=== PATIENT | female | born 1995 | race Caucasian/White ===

== ENCOUNTER 2020-12-31 22:09 | Emergency (ER) | payer OTHER, SELFPAY ==
--- NOTE | ~2020-12-31 | XR_ITS ---
EXAMINATION: XR KNEE, RIGHT CLINICAL INFORMATION: Pain. COMPARISON: None TECHNIQUE: Four views of the right knee. FINDINGS: No acute fractures or malalignment. No significant degenerative changes. No chondrocalcinosis or unexpected foreign bodies. Small joint effusion. XR/XR knee RT 4V IMPRESSION: No acute fractures or malalignment. Small joint effusion.
--- NOTE | ~2020-12-31 | XR_ITS ---
EXAMINATION: XR HIP, RIGHT CLINICAL INFORMATION: Pain. COMPARISON: None TECHNIQUE: Two views of the right hip. FINDINGS: Bones and soft tissues are normal. No fracture. Alignment is anatomic. Hip joint space is maintained. XR/XR hip RT w PEL1V IMPRESSION: Normal right hip.
[2020-12-31 22:12] VITALS: BP 136/87; PULSE 102; RESP 20; TEMP 36.7; O2SAT 100; BMI 34.9
--- NOTE | 2020-12-31 23:43 | ED_ITS ---
HPI - Extremity Injury (Lower) General Chief Complaint: Extremity Injury, Lower Stated Complaint: Knee Pain Time Seen by Provider: 12/31/20 23:09 Source: patient Mode of arrival: ambulatory Limitations: no limitations History of Present Illness HPI Narrative: Patient presents to ED for right knee pain and hip pain. Patient states she was in the shower and a right knee some knee gave out which caused her to fall on quietly on her knee and has hip pain. Patient states she heard a popping sound in right knee. Patient denies hitting head or loss of consciousness. Related Data Previous Rx's Medication Instructions Recorded naproxen 500 mg tablet 500 mg PO BID PRN 10 Days #20 tab 12/31/20 cyclobenzaprine 10 mg tablet 10 mg PO TID PRN #18 tab 01/01/21 prednisone 20 mg tablet 60 mg PO DAILY 5 Days #15 tab 01/01/21 Allergies Allergy/AdvReac Type Severity Reaction Status Date / Time No Known Allergies Allergy Verified 12/31/20 22:14 Review of Systems Review of Systems: Yes all other systems are reviewed and are negative Constitutional: Constitutional: Reports as per HPI and Reports no additional constitutional complaints Eyes: Eyes: Reports as per HPI and Reports no additional eye complaints ENT: Reports system reviewed and no additional complaints, except as documented and Reports as per HPI Cardiovascular: Cardiovascular: Reports as per HPI and Reports no additional cardiovascular complaints Respiratory: Respiratory: Reports as per HPI and Reports no additional respiratory complaints Gastrointestinal: Gastrointestinal: Reports as per HPI and Reports no additional gastrointestinal complaints Genitourinary: Genitourinary: Reports no additional female genitourinary complaints and Reports as per HPI Musculoskeletal: Musculoskeletal: Reports no additional musculoskeletal complaints and Reports arthralgias (Right knee right hip) Neurologic: Reports system reviewed and no additional complaints, except as documented and Reports as per HPI Psychiatric: Psychiatric: Reports no additional psychiatric complaints and Reports as per HPI [facility] Past Medical History Medical History (Updated 01/01/21 @ 00:04 by MERLE Infante) Asthma Social History Social History Advance Directives: No Advance Directives Information Provided: Yes Physical Exam Vital Signs: Vital Signs: Last Vital Signs Temp 98.0 F 12/31/20 22:12 Pulse 102 H 12/31/20 22:12 Resp 20 12/31/20 22:12 BP 136/87 12/31/20 22:12 Pulse Ox 100 12/31/20 22:12 Body Mass Index 34.9 Const: General: cooperative, healthy appearing, comfortable, no acute distress, well developed, alert, awake, Physically active and acute distress Orientation/consciousness: patient oriented x3 HENMT: Head: Yes normal to inspection, Yes No palpable skull fracture present, Yes normocephalic, Yes atraumatic, No abrasion, No Acrocyanosis present, No Gonzales's sign, No contusion, No cranial bruits, No hematoma, No laceration, No occipital foramen tenderness, No palpable skull fracture, No raccoon eyes, No scalp lesion, No scalp tenderness, No Temporal artery tenderness present and No periorbital ecchymosis Eyes: General: appearance normal, both eyes and all related structures Neck: Neck: Yes normal visual inspection, Yes full ROM, Yes no lymphadenopathy and Yes no meningeal signs Chest: Chest palpation & inspection: normal inspection of the chest and normal palpation of entire chest wall Resp: Effort & Inspection: normal respiratory effort and able to speak in complete sentences Auscultation: clear to auscultation bilaterally Cardio: Jugular venous distension: no JVD Heart sounds: S1 normal heart sound present and S2 normal heart sound present GI: Inspection: Yes normal to inspection and No abdominal wall ecchymosis Palpation (GI): Soft to palpation, not firm, nontender, no guarding and not rigid : General: No CVA tenderness and Yes no CVA tenderness Back/Spine/Pelvis: Back: no CVA tenderness, No CVA tenderness, mass, No erythema, No warmth, No sacral edema, No ecchymosis and No back tenderness Skin: General skin exam: no rashes or lesions noted and elasticity normal Neuro: General: patient oriented x3, no meningeal signs and CN's II-XI intact bilaterally Cranial nerves: Yes CN's II-XII intact bilaterally Extrem: Other: Right hip negative for ecchymosis, tenderness, erythema, or deformities General: Yes normal to inspection Knee images: 1. Positive for tenderness on palpation. negative for any erythema, ecchymosis, elasticity, or deforomity. Able to flex/extend knee but with pain. Negative for external/internal rotation of leg to indicate hip fracture. patient able to lift lower leg. Negative for dip in thigh to indicate quadriceps tear. lower extremities pedal pusles intact. popiteal pulse intact neuro exam is intact. motor exam intact, but limited due to pain. Psych: Appearance: grossly normal and well kempt Course Course Course Narrative: Patient sent for imaging Reevaluation(s) Reevaluation #1: Xrays negative for fractures. knee xray shows joint effusion after knee popping sound. patient informed most likely she has a meniscus or ligamen tear and will need follow up with ortho for MRI. Will discharge with naproxen and sterioreds. patient placed in crutches and knee wrap Time: 23:57 MDM - Extremity Injury (Lower) MDM Narrative Medical decision making narrative: Knee sprain Discharge Plan Discharge Clinical Impression: Knee MCL sprain Qualifiers: Encounter type: initial encounter Laterality: right Qualified Code(s): S83.411A - Sprain of medial collateral ligament of right knee, initial encounter Joint effusion of knee Qualifiers: Laterality: right Qualified Code(s): M25.461 - Effusion, right knee Patient Disposition: Home, Self-Care Instructions: Knee Sprain (ED), Swollen Knee Joint (ED) Additional Instructions: History physical exam most likely due to injure ligament or meniscus. He will need MRI for orthopedic to see if there was any tear and possible surgical management. You will be discharged with NSAIDs and steroids. Return to the ED immediately for any swelling of lower extremity, bluish black discoloration, co olness, hotness, redness, calf pain, fever, chills, nausea, vomiting, or any other concerning symptoms. Prescriptions: New naproxen 500 mg tablet 500 mg PO BID PRN (Reason: pain) 10 Days Qty: 20 RF: 0 prednisone 20 mg tablet 60 mg PO DAILY 5 Days Qty: 15 RF: 0 cyclobenzaprine 10 mg tablet 10 mg PO TID PRN (Reason: pain) Qty: 18 RF: 0 Referrals: Alfred Spivey MD [Physician] - 2 days (Knee sprain with joint effusions. will need MRI to rule out Tear of meninscus or ligament) Stand Alone Forms: Work/School Release Interventions: ED Discharge Assessment Last Done: 01/01/21 00:10 Discharge Date/Time: 01/01/21 00:12 Print Language: B[place]ian
[2020-12-31] MEDS: oxyCODONE HCl Immed Release 5 MG TABLET PO (23:55)
== END 2021-01-01 00:12 | disposition home or self-care (01) ==
PROVIDERS: Emergency Provider Internal Medicine; PCP Nurse Practitioner Adult Health
DX: S83.411A Sprain of medial collateral ligament of right knee, initial encounter (principal); X50.1XXA Overexertion from prolonged static or awkward postures, initial encounter; M25.461 Effusion, right knee; Y93.E1 Activity, personal bathing and showering; Y92.012 Bathroom of single-family (private) house as the place of occurrence of the external cause; Y99.9 Unspecified external cause status
CPT/HCPCS: 73502; 73564; 96372; 99284

== ENCOUNTER → 2021-12-14 15:02 | Outpatient (BNVA) | payer OTHER, SELFPAY | PROVIDERS: PCP Nurse Practitioner Adult Health; Visit Provider Physician Assistant | DX: S05.12XA Contusion of eyeball and orbital tissues, left eye, initial encounter (principal); Y04.2XXA Assault by strike against or bumped into by another person, initial encounter | CPT/HCPCS: 99203 ==

== ENCOUNTER → 2021-12-17 14:06 | Outpatient (BNVA) | payer OTHER, SELFPAY | PROVIDERS: PCP Nurse Practitioner Adult Health; Visit Provider Internal Medicine | DX: S05.12XA Contusion of eyeball and orbital tissues, left eye, initial encounter (principal); Y04.2XXA Assault by strike against or bumped into by another person, initial encounter | CPT/HCPCS: 70450; 99214 ==

== ENCOUNTER → 2021-12-24 09:56 | Outpatient (BNVA) | payer OTHER, SELFPAY | PROVIDERS: PCP Nurse Practitioner Adult Health; Visit Provider Internal Medicine | DX: S05.12XA Contusion of eyeball and orbital tissues, left eye, initial encounter (principal); Y04.2XXA Assault by strike against or bumped into by another person, initial encounter | CPT/HCPCS: 99213 ==

== ENCOUNTER → 2021-12-31 09:22 | Outpatient (BNVA) | payer OTHER, SELFPAY | PROVIDERS: PCP Nurse Practitioner Adult Health; Visit Provider Internal Medicine | DX: S05.12XD Contusion of eyeball and orbital tissues, left eye, subsequent encounter (principal); Y04.2XXD Assault by strike against or bumped into by another person, subsequent encounter | CPT/HCPCS: 99213 ==

== ENCOUNTER 2022-12-01 21:27 | Emergency (ER) | payer SELFPAY ==
[2022-12-01 21:59] VITALS: BP 128/86; PULSE 89; RESP 18; TEMP 36.6; O2SAT 98; BMI 35.0
--- NOTE | 2022-12-01 23:52 | ED.GENADULT ---
HPI - General Adult General Chief complaint: Extremity Problem Stated complaint: Swollen ring finger Time Seen by Provider: 12/01/22 22:45 Source: patient, RN notes reviewed and old records reviewed Mode of arrival: ambulatory Limitations: no limitations History of Present Illness HPI narrative: 27-year-old female presents for evaluation of swelling to her left 4th finger. Patient reports that she got yesterday She put a new wedding ring/band on at 4:00 p.m. yesterday She states that today she could not take the ring off after finger had swollen She tried several different methods to get the ring off and was unsuccessful She denies any trauma to the hand or finger Related Data Previous Rx's Medication Instructions Recorded naproxen 500 mg tablet 500 mg PO BID PRN pain 10 days #20 12/31/20 tabs cyclobenzaprine 10 mg tablet 10 mg PO TID PRN pain #18 tabs 01/01/21 prednisone 20 mg tablet 60 mg (3 x 20 mg) PO DAILY 5 days 01/01/21 #15 tabs Allergies Allergy/AdvReac Type Severity Reaction Status Date / Time shellfish derived AdvReac Anaphylaxis Verified 12/01/22 21:58 Review of Systems Musculoskeletal: Comments: Swelling to left 4th finger PMFSH Past Medical History Medical History (Updated 12/01/22 @ 23:54 by Kofi Posey) Asthma Social History Social History Advance Directives: No Advance Directives Information Provided: No Physical Exam ED Vital Signs: Vital Signs - 24 hr 12/01/22 21:59 Temperature 97.9 F Pulse Rate 89 Respiratory Rate 18 Blood Pressure 128/86 Pulse Oximetry 98 Oxygen Delivery Method Room Air BMI result Body Mass Index 35.0 Extrem Other: Patient has not marked edema of the left 4th finger proximal to the PIP joint. No open wounds, no erythema, no increased wounds Medical Decision Making Medical Decision Making MDM Narrative: [age] old female presents for evaluation of swelling to the left 4th finger and she is unable to remove her wedding ring. I tried unsuccessfully to decrease inflammation with an ice pack, wrapping suture material distal to the ring and applying lubrication to try in slide the ring off. Unfortunately I had to cut the ring in 2 separate places to remove about 0.5 cm piece to be able to cc removed the ring. The patient was given all pieces of the brain in a Ziploc bag. Nebs no trauma, so no indication for x-ray imaging. The patient has full range of motion of the finger Differential Diagnosis Differential Diagnoses: The differential diagnosis associated with the presentation includes Dermatitis Finger swelling Cellulitis less likely Discharge Plan Discharge Clinical Impression: Swelling of finger, left Patient Disposition: Home, Self-Care Instructions: Swollen Joint (ED) Additional Instructions: I am sorry to have to cut of your wedding ring. You should be able to take it to the jeweler to have it repaired and hopefully sized up Prescriptions: No Action naproxen 500 mg tablet 500 mg PO BID PRN (Reason: pain) 10 Days Qty: 20 0RF prednisone 20 mg tablet 60 mg PO DAILY 5 Days Qty: 15 0RF cyclobenzaprine 10 mg tablet 10 mg PO TID PRN (Reason: pain) Qty: 18 0RF Rx Instructions: side effect is drowsiness. Do not take at work or while driving.
== END 2022-12-02 00:48 | disposition home or self-care (01) ==
PROVIDERS: Emergency Provider Emergency Medicine
DX: R22.32 Localized swelling, mass and lump, left upper limb (principal)
CPT/HCPCS: 99283

== ENCOUNTER → 2022-12-25 14:14 | Outpatient (BNVA) | payer OTHER, SELFPAY | PROVIDERS: Visit Provider Physician Assistant Medical | DX: Z77.21 Contact with and (suspected) exposure to potentially hazardous body fluids (principal) | CPT/HCPCS: 99203 ==

== ENCOUNTER → 2022-12-30 14:01 | Outpatient (BNVA) | payer OTHER, SELFPAY | PROVIDERS: Visit Provider Physician Assistant Medical | DX: Z77.21 Contact with and (suspected) exposure to potentially hazardous body fluids (principal) | CPT/HCPCS: 99213 ==

== ENCOUNTER 2023-04-18 17:45 | Emergency (ER) | payer OTHER, SELFPAY ==
--- NOTE | ~2023-04-18 | US_ITS ---
EXAMINATION: US OBSTETRICAL ULTRASOUND CLINICAL INFORMATION: Spotting COMPARISON: None available. LMP: 03/10/2023. Gestational age by maternal dates is 5 weeks 4 days. Estimated date of delivery by maternal dates is 12/15/2023. TECHNIQUE: Transabdominal and transvaginal trimester OB ultrasound. Transvaginal exam was performed for better visualization of the gestational sac. FINDINGS: The uterus measures 8.8 x 3.6 x 4.6 cm in dimension. There is an intrauterine gestational sac and yolk sac. In fact diameter measures 0.97 cm suggesting gestational age 5 weeks 5 days. No pole is seen. This may be due to early gestational age. The ovaries are normal. No fluid in the pelvis. US/US OB pelvic and transvaginal IMPRESSION: Intrauterine gestational sac and yolk sac. No pole seen. This may be due to early gestational age.
[2023-04-18 18:07] VITALS: BP 143/84; PULSE 94; RESP 18; TEMP 36.9; O2SAT 98; BMI 37.2
--- NOTE | 2023-04-18 18:10 | ED.FEMALEGU ---
HPI - Female Genitourinary General Chief complaint: Vaginal Bleeding Stated complaint: early , blood spotting Time Seen by Provider: 04/18/23 21:13 History of Present Illness HPI Narrative: 27 y/o F patient; PMH ; presents from home with concern for vaginal spotting and abdominal cramping. The patient states she is currently 5.5 weeks by dates. She saw her PCP today who referred her to an OB but she has not yet made an appointment with them. She reports the spotting was once, dark brown in color, and occurred when she wiped with toilet tissue (it was not on her underwear). She is currently taking vitamins. She has stopped her prior anxiety medications. She denies: dysuria, nausea/vomiting, difficulty breathing, chest pain. Related Data Previous Rx's Medication Instructions Recorded naproxen 500 mg tablet 500 mg PO BID PRN pain 10 days #20 12/31/20 tabs cyclobenzaprine 10 mg tablet 10 mg PO TID PRN pain #18 tabs 01/01/21 prednisone 20 mg tablet 60 mg (3 x 20 mg) PO DAILY 5 days 01/01/21 #15 tabs erythromycin 5 mg/gram (0.5 %) eye 0.5 inch ophthalmic (eye) BID #3.5 12/25/22 ointment grams Allergies Allergy/AdvReac Type Severity Reaction Status Date / Time shellfish derived AdvReac Anaphylaxis Verified 12/01/22 21:58 Review of Systems Review of Systems: Yes all other systems are reviewed and are negative PMFSH Past Medical History Attestation statement: The following information was validated with the patient. Source: old records reviewed Medical History Asthma Social History Social History Smoked in Last 30 Days: No Advance Directives: No Advance Directives Information Provided: No Patient : Yes Physical Exam Vital Signs: Vital Signs: Last Vital Signs Temp 98.1 F 04/18/23 21:15 Pulse 99 04/18/23 21:15 Resp 18 04/18/23 21:15 BP 136/68 04/18/23 21:15 Pulse Ox 100 04/18/23 21:15 O2 Del Method Room Air 04/18/23 21:15 BMI result Body Mass Index 37.2 Patient is afebrile and hemodynamically stable. Const: General: cooperative and comfortable HEENT: Head: Yes atraumatic Eyes: General: appearance normal, both eyes and all related structures Pupils: Equal, round and reactive pupils present Neck: Neck: Yes normal visual inspection, Yes full ROM, Yes supple and No tender Chest: Chest palpation & inspection: normal inspection of the chest and normal palpation of entire chest wall Resp: Effort & Inspection: normal respiratory effort, able to speak in complete sentences and no respiratory distress Auscultation: clear to auscultation bilaterally Cardio: Rate: regular rate Rhythm: regular rhythm Peripheral pulses: Peripheral pulses 2+ throughout GI: Inspection: Yes normal to inspection, No Abdominal wall edema and No distended Palpation (GI): Soft to palpation, not firm, nontender, no guarding and not rigid Auscultation: normal bowel sounds Neuro: Cranial nerves: Yes Equal, round and reactive pupils present Course Course Course Narrative: RME:?27 yo female, G1PO, approx 5 wks gestation, here for eval of vaginal spotting x1 hour. no clots. endorses abd cramping. has not had an appointment with OB yet. had an appointment with PCP and upon returning home began spotting. denies having vaginal exam while at PCP appointment. labs, UA, US ordered. Full HPI, ROS and PE to be performed by the primary ED provider. Reevaluation(s) Reevaluation #1: Care of patient assumed from triage provider. Agree with work up begun. Reviewed findings. US Pelvis with intrauterine gestational sac and yolk sac. No pole seen - likely due to early gestational age. Patient informed of findings. UA negative. Beta hcg quant elevated. No further abdominal cramping or vaginal spotting. Plan: Discharge to home with PCP and OBGYN follow up Return precautions given Medical Decision Making Lab Data 04/18/23 18:24 04/18/23 18:24 Labs: Lab Results 04/18/23 04/18/23 04/18/23 Range/Units 18:24 18:25 21:23 WBC 10.0 (4.8-10.8) X10*3/uL RBC 4.85 (4.20-5.50) X10*6/uL Hgb 14.0 (12.0-16.0) g/dl Hct 42.1 (37.0-47.0) % MCV 86.8 (80.0-98.0) fL MCH 28.9 (27.0-33.0) pg MCHC 33.3 (31.0-35.0) g/dl RDW 12.9 (11.0-16.0) % Plt Count 305 (160-400) X10*3/uL MPV 10.4 (9.4-12.3) fL Immature Gran % (Auto) 1.1 H (0.0-0.4) % Neut % (Auto) 60.3 (45-73) % Lymph % (Auto) 29.2 (20-40) % [place] % (Auto) 7.7 (2-11) % Eos % (Auto) 1.2 (0-4) % Baso % (Auto) 0.5 (0-2) % Lymph # (Auto) 2.9 (1.2-4.9) X10*3/uL [place] # (Auto) 0.8 (0.1-1.2) X10*3/uL Eos # (Auto) 0.1 (0.0-0.4) X10*3/uL Baso # (Auto) 0.1 (0.0-0.2) X10*3/uL Abs Immat Gran (auto) 0.11 H (0.00-0.03) X10*3/uL Absolute Neuts (auto) 6.0 (2.0-8.3) x10*3/uL Absolute Nucleated RBC 0.000 (0.0-0.012) X10*3/uL Nucleated RBC % (auto) 0.0 (0.0-0.2) /100WBC PT 11.7 (11.1-13.3) SEC INR 1.0 (0.9-1.1) Sodium 142 (135-145) mmol/L Potassium 4.0 (3.3-5.1) mmol/L Chloride 108 (96-108) mmol/L Carbon Dioxide 26 (22-29) mmol/L Anion Gap 12 (12-20) BUN 8 L (9-16) mg/dL Creatinine 0.75 (0.5-1.4) mg/dL Estim Creat Clear Calc 147.2 Estimated GFR > 60 Random Glucose 108 (60-115) mg/dL Calcium 9.5 (8.4-10.2) mg/dL Beta HCG, Quant 9677 mIU/mL Urine Color Yellow Urine Appearance Clear Urine pH 6.0 (5.0-9.0) Ur Specific [place] 1.020 (1.005-1.025) Urine Protein Negative (Neg-Trace) mg/dL Urine Glucose (UA) Negative (Negative) mg/dL Urine Ketones Negative (Negative) mg/dL Urine Blood Negative (Negative) Urine Nitrite Negative (Negative) Ur Leukocyte Esterase Negative (Negative) Urine Test POSITIVE H (NEGATIVE) Blood Type O Positive Radiology Impression Discussion of test interpretation with radiology: I have reviewed the radiologist's reading. Radiologist Impression: EXAMINATION: US OBSTETRICAL ULTRASOUND CLINICAL INFORMATION: Spotting COMPARISON: None available. LMP: 03/10/2023. Gestational age by maternal dates is 5 weeks 4 days. Estimated date of delivery by maternal dates is 12/15/2023. TECHNIQUE: Transabdominal and transvaginal trimester OB ultrasound. Transvaginal exam was performed for better visualization of the gestational sac. FINDINGS: The uterus measures 8.8 x 3.6 x 4.6 cm in dimension. There is an intrauterine gestational sac and yolk sac. In fact diameter measures 0.97 cm suggesting gestational age 5 weeks 5 days. No pole is seen. This may be due to early gestational age. The ovaries are normal. No fluid in the pelvis. US/US OB pelvic and transvaginal IMPRESSION: Intrauterine gestational sac and yolk sac. No pole seen. This may be due to early gestational age. Discharge Plan Discharge Clinical Impression: Vaginal spotting, First trimester Patient Disposition: Home, Self-Care Instructions: First Trimester (ED) Prescriptions: No Action naproxen 500 mg tablet 500 mg PO BID PRN (Reason: pain) 10 Days Qty: 20 0RF prednisone 20 mg tablet 60 mg PO DAILY 5 Days Qty: 15 0RF cyclobenzaprine 10 mg tablet 10 mg PO TID PRN (Reason: pain) Qty: 18 0RF Rx Instructions: side effect is drowsiness. Do not take at work or while driving. erythromycin 5 mg/gram (0.5 %) ointment 0.5 inch ophthalmic (eye) BID Qty: 3.5 0RF
[2023-04-18 18:30] LABS: MANUAL DIFF FLAG NO
[2023-04-18 18:37] LABS: Prothrombin Time 11.7 SEC (11.1-13.3)
[2023-04-18 18:43] LABS: Basophils Absolute Auto 0.1 X10*3/uL (0.0-0.2); Basophils Percent Auto 0.5 % (0-2); Eosinophils Absolute Auto 0.1 X10*3/uL (0.0-0.4); Eosinophils Percent Auto 1.2 % (0-4); Hematocrit 42.1 % (37.0-47.0); Imm Gran Abs Auto 0.11 X10*3/uL (0.00-0.03); Imm Gran Pct Auto 1.1 % (0.0-0.4); Lymphocytes Absolute Auto 2.9 X10*3/uL (1.2-4.9); Lymphocytes Percent Auto 29.2 % (20-40); Mean Corpuscular HGB Conc 33.3 g/dl (31.0-35.0); Mean Corpuscular Hemoglobin 28.9 pg (27.0-33.0); Mean Corpuscular Volume 86.8 fL (80.0-98.0); Mean Platelet Volume 10.4 fL (9.4-12.3); Monocytes Absolute Auto 0.8 X10*3/uL (0.1-1.2); Monocytes Percent Auto 7.7 % (2-11); Neutrophils Percent Auto 60.3 % (45-73); Platelet Count 305 X10*3/uL (160-400); Red Blood Count 4.85 X10*6/uL (4.20-5.50); Red Cell Distribution Width 12.9 % (11.0-16.0)
[2023-04-18 18:49] LABS: Anion Gap 12 (12-20); Blood Urea Nitrogen 8 mg/dL (9-16); Calcium 9.5 mg/dL (8.4-10.2); Carbon Dioxide 26 mmol/L (22-29); Chloride 108 mmol/L (96-108); Creatinine Clr Calc Pharmacy 147.2; Estimated Glomerular Filt Rate > 60; Glucose Random 108 mg/dL (60-115); Sodium 142 mmol/L (135-145)
[2023-04-18 18:50] LABS: HCG Quantitative 9677 mIU/mL
[2023-04-18 21:15] VITALS: BP 136/68; PULSE 99; RESP 18; TEMP 36.7; O2SAT 100
[2023-04-18 21:31] LABS: Appearance Urine Clear; Color Urine Yellow; Glucose Urine UA Negative (Negative); Leukocyte Esterase Urine Negative (Negative); Nitrite Urine Negative (Negative); Urine Blood Negative (Negative); Urine Ketones Negative (Negative); Urine Protein Negative (Neg-Trace)
[2023-04-18 21:32] LABS: UPreg QC Valid YES; Urine Pregnancy POSITIVE (NEGATIVE)
== END 2023-04-18 21:58 | disposition home or self-care (01) ==
PROVIDERS: Physician Assistant Medical; Emergency Provider Emergency Medicine
DX: O26.851 Spotting complicating pregnancy, first trimester (principal); Z3A.01 Less than 8 weeks gestation of pregnancy; R10.9 Unspecified abdominal pain
CPT/HCPCS: 36415; 76801; 76817; 80048; 81003; 81025; 84702; 85025; 85610; 86900; 86901; 99284